=== PATIENT | male | born 1955 | race Caucasian/White ===

== ENCOUNTER 2018-11-01 15:54 | Emergency (ER) | payer OTHER, SELFPAY ==
[2018-11-01 15:56] VITALS: BP 140/73; PULSE 124; RESP 26; TEMP 36.8; O2SAT 89; BMI 34.9
--- NOTE | 2018-11-01 16:03 | ED.RN ---
PT STATES BASELINE HEART RATE FOR HIM IS 130'S, REFUSES O2 DESPITE SPO2 88-89% ON ROOM AIR.
--- NOTE | 2018-11-01 16:32 | ED.VISSUMM ---
- ER Visit Summary Date of Service: 11/01/18 Chief Complaint: Abdominal distention History of Present Illness: The patient is a 63 M who presents with ascites and abdominal distention that has been getting worse over the past 2-3 weeks. Patient normally gets a paracentesis weekly however it is been almost 3 weeks since his last paracentesis. Caregiver states that he normally gets 10 L drained from his abdomen when he gets his paracentesis. Patient denies any fevers or chills. Patient denies any nausea or vomiting. Patient denies any diarrhea, melena, or hematochezia. Patient denies any urinary complaints. Physical Examination: Vital signs show tachycardia of 124 and a mild tachypnea of 26. Pulse oximeter is 89% on room air. Oral mucosa is pink and moist. Neck is supple. Trachea is midline. There is no JVD noted. Heart was regular and tachycardic. Lungs are clear and equal bilateral. Abdomen is distended with a fluid wave noted. There is no erythema. Cranial nerves II through XII are intact. There are no focal motor or sensory deficits noted. Emergency Department Course and Treatment: The right lower abdomen was prepped and draped in a sterile manner. The area was anesthetized 1% plain lidocaine locally. The abdomen was drained with 9 L of cirrhotic fluid. Patient tolerated this procedure well. Patient felt better after the procedure. Dressing was applied to the puncture site. Patient was instructed to follow-up with his primary care physician and with the [place] [facility] for further treatment. Patient and caregiver understood and were agreeable with the plan. All questions were answered. Disposition: Discharge home Impression: 1. Cirrhosis with ascites This note was generated with [employer] dictation software. It may contain incorrect words, spelling, and punctuation that were not noted in review of the chart prior to signing ED Disposition - Plan for ED Patient: Disposition: Nursing Home Facility Diagnosis: Cirrhosis of liver with ascites Referrals: Dalton Mo MD [Primary Care Provider] -
--- NOTE | 2018-11-01 16:36 | ED.DCSUM_ITS ---
- ER Visit Summary Date of Service: 11/01/18 Chief Complaint: Abdominal distention History of Present Illness: The patient is a 63 M who presents with ascites and abdominal distention that has been getting worse over the past 2-3 weeks. Patient normally gets a paracentesis weekly however it is been almost 3 weeks since his last paracentesis. Caregiver states that he normally gets 10 L drained from his abdomen when he gets his paracentesis. Patient denies any fevers or chills. Patient denies any nausea or vomiting. Patient denies any diarrhea, melena, or hematochezia. Patient denies any urinary complaints. Physical Examination: Vital signs show tachycardia of 124 and a mild tachypnea of 26. Pulse oximeter is 89% on room air. Oral mucosa is pink and moist. Neck is supple. Trachea is midline. There is no JVD noted. Heart was regular and tachycardic. Lungs are clear and equal bilateral. Abdomen is distended with a fluid wave noted. There is no erythema. Cranial nerves II through XII are intact. There are no focal motor or sensory deficits noted. Emergency Department Course and Treatment: The right lower abdomen was prepped and draped in a sterile manner. The area was anesthetized 1% plain lidocaine locally. The abdomen was drained with 9 L of cirrhotic fluid. Patient tolerated this procedure well. Patient felt better after the procedure. Dressing was applied to the puncture site. Patient was instructed to follow-up with his primary care physician and with the [place] [facility] for further treatment. Patient and caregiver understood and were agreeable with the plan. All questions were answered. Disposition: Discharge home Impression: 1. Cirrhosis with ascites This note was generated with [employer] dictation software. It may contain incorrect words, spelling, and punctuation that were not noted in review of the chart prior to signing ED Disposition - Plan for ED Patient: Disposition: Nursing Home Facility Diagnosis: Cirrhosis of liver with ascites Referrals: Dalton Mo MD [Primary Care Provider] -
[2018-11-01 18:26] VITALS: BP 118/57; PULSE 115; RESP 20; O2SAT 94
--- NOTE | 2018-11-01 18:46 | ED.RN ---
THIS RN ASSISTED DR. OLMEDO WITH PT PARACENTESIS. PT TOLERATED WELL. 9L FLUID DRAINED. PRESSURE APPLIED TO SITE BY DR. OLMEDO, AND GAUZE DRESSING PLACED BY DR. OLMEDO. WILL CONTINUE TO MONITOR.
[2018-11-01 19:26] VITALS: BP 115/61; PULSE 109; RESP 19; O2SAT 92
== END 2018-11-01 19:44 | disposition skilled nursing facility (03) ==
PROVIDERS: Emergency Provider Emergency Medicine; Family Provider Internal Medicine Infectious Disease; PCP Internal Medicine Infectious Disease
DX: K74.60 Unspecified cirrhosis of liver (principal); R18.8 Other ascites
CPT/HCPCS: 49082; 99285; A4216

== ENCOUNTER 2018-11-06 11:50 | Day surgery (SDC) | payer SELFPAY ==
[2018-11-06 12:45] VITALS: BMI 34.7
[2018-11-06 13:18] VITALS: BP 141/80; PULSE 109; RESP 16; TEMP 36.9; O2SAT 96; BMI 34.7
[2018-11-06 13:41] LABS: Bedside Glucose 148 mg/dL (70-110)
--- NOTE | 2018-11-06 13:42 | PCM.HP.STD ---
Problem List (1) Cirrhosis Status: Acute Qualifiers: Hepatic cirrhosis type: unspecified hepatic cirrhosis Ascites presence: with ascites Qualified Code(s): K74.60 - Unspecified cirrhosis of liver; R18.8 - Other ascites (2) Schizophrenia Status: Acute Qualifiers: Schizophrenia type: schizophreniform disorder Qualified Code(s): F20.81 - Schizophreniform disorder History of Present Illness Date of Admission: 11/06/18 The patient is a 63 year old M intractable ascites secondary to assisted psychiatric medications. THe patient is a poor historian and confabulates, but his sister/ caregiver is providing history. He has been placed in hospice, but is requiring frequent paracentesis for ascites. His abdomen is grossly distended again Past Medical History Allergies chlorpromazine [From Thorazine] Allergy (Verified 11/06/18 12:42) Unknown thioridazine [From Mellaril] Allergy (Verified 11/06/18 12:42) Unknown Home Medications: Ambulatory Orders Medication Instructions Recorded Oxycodone HCl 5 mg PO Q4H PRN PRN 11/01/18 Surgical History: noncontributory Lives: [facility] Smoking Status: Light Smoker (<10/day) Alcohol: None Drugs: None Review of Systems Unable to obtain accurate/complete ROS d/t: psychiatric issues VTE Information - Inpt Only VTE Present on Admission: No VTE Mechan Device Prophylaxis: SCD's VTE Pharm Prophylaxis ordered?: No Patient Problems: Active and Suspected Problems Cirrhosis (Acute) Schizophrenia (Acute) - Physical Exam General: Alert, Cooperative, No apparent distress Lungs: Clear to auscultation, Normal air movement Cardiovascular: Regular rate, Regular Rhythm Abdomen: Bowel Sounds Present, Soft, - - grossly distended with tense ascites Vital Signs Temp Pulse Resp BP Pulse Ox 98.4 F 109 H 16 141/80 H 96 11/06/18 13:18 11/06/18 13:18 11/06/18 13:18 11/06/18 13:18 11/06/18 13:18 Oxygen Delivery Method Room Air Weight: 100.698 kg Body Mass Index (BMI) 34.7 POC Glucose 11/06/18 13:28 POC Glucose 148 H Assessment/Plan All Active Problems Cirrhosis (Acute) Schizophrenia (Acute) intractable ascites I plan to place an ultrasound guided tunneled paracentesis catheter. Consent is obtained from the patients sister, who is a nurse. She understands the risks, benefits, possible complications and consents to the planned procedure. 2 gm of Ancef will be given
[2018-11-06] MEDS: Cefazolin 2 GM in 0.9% Normal Saline 100 ML IV (14:44)
--- NOTE | 2018-11-06 15:42 | PCM.OPRPT ---
Problem List (1) Cirrhosis Status: Acute Qualifiers: Hepatic cirrhosis type: unspecified hepatic cirrhosis Ascites presence: with ascites Qualified Code(s): K74.60 - Unspecified cirrhosis of liver; R18.8 - Other ascites (2) Schizophrenia Status: Acute Qualifiers: Schizophrenia type: schizophreniform disorder Qualified Code(s): F20.81 - Schizophreniform disorder Report of Operation Date of Procedure: 11/06/18 Pre-Operative Diagnosis: intractable ascites, end stage hepatic failure Post-Operative Diagnosis: intractable ascites, end stage hepatic failure Surgery/Procedure Performed:: ultrasound guided tunneled peritoneal catheter placement Type of Anesthesia:: Local MAC Anesthesiologist: Sterling Link ASA4 Drains: peritoneal drain - 10,500cc Estimated Blood Loss (mL): 5 Fluids Replaced: 300 Description of Procedure: The patient was brought to the operating suite. Sign was performed verifying patient, site, position, skip antibiotic prophylaxis-2 g of Ancef and DVT prophylaxis with SCDs. Ultrasound was used to evaluate the lower abdomen and a window marked providing good entry into the peritoneal cavity along with marking the inferior epigastric to avoid the risks for bleeding was marked on the skin in the Following IV sedation, abdomen were prepped and draped in the usual fashion. Timeout was performed verifying patient, site, position. Local anesthetic was injected and a Seldinger needle was used to access the peritoneal cavity without difficulty. A guidewire was inserted and advanced into the peritoneal space. Local anesthetic was injected and incision made for the catheter exit site. Next the catheter was tunneled from the skin exit site to the wire. Dilators were placed over the wire until the largest dilator with introducer sheath were placed. The wire and dilator removed. The catheter was fed through the introducer suture sheath and adjusted to the edge of the abdominal cavity with the fenestrations . There was good return of ascites fluid. The Pleurx catheter was affixed to an adapter and ascetic fluid was drained. A total of approximately 10,500 cc of fluid was drained. The catheter was secured with a 3-0 silk suture at the skin exit site. The abdominal insertion site skin was closed with 4-0 Biosyn interrupted subcuticular sutures. Dermabond was applied to the abdominal insertion site. A dressing was applied. The catheter was then capped and dressed with the occlusive dressing The patient was brought to recovery room in stable condition. Grafts/Implants Used: Lot pleurex catheter [id number] exp - 09/11/2019
[2018-11-06 15:46] VITALS: BP 125/62; BP 141/80; PULSE 111; RESP 16; TEMP 36.8; O2SAT 92
--- NOTE | 2018-11-06 15:50 | DCINST_ITS ---
- Discharge Diagnoses Current Active Problems: Current Active and Chronic Problems Cirrhosis (Acute) Schizophrenia (Acute) You will use the following diet at home:: No restrictions Call your doctor if your incision/area has: Continuous Slow Oozing, Sudden Increased Bleeding, Increased Redness, Foul Smelling Discharge, Swelling at the incision site Call your doctor if you observe: Fever of 101 or Higher Additional Dressing/Incision Instructions:: drain pleurex catheter every other day - likely 2-3L to allow patient to be comfortable and tolerate a diet. redress per protocol Allergies/Adverse Reactions: Allergies chlorpromazine [From Thorazine] Allergy (Verified 11/06/18 12:42) Unknown thioridazine [From Mellaril] Allergy (Verified 11/06/18 12:42) Unknown Medications to take at Discharge Oxycodone HCl 5 mg PO Q4H PRN PRN 11/01/18 Primary Care Physician: Dalton Mo MD [Primary Care Provider] - Test Results: Test results from this visit will be discussed in further detail at your follow- up appointment, if applicable.
[2018-11-06 15:51] VITALS: BP 125/54; BP 141/80; PULSE 109; RESP 16; O2SAT 91
[2018-11-06 15:56] VITALS: BP 120/56; BP 141/80; PULSE 109; RESP 16; O2SAT 95
[2018-11-06 16:01] VITALS: BP 133/61; BP 141/80; PULSE 109; RESP 18; TEMP 37.1; O2SAT 93
[2018-11-06 16:53] VITALS: BP 141/80
== END 2018-11-06 16:57 | disposition skilled nursing facility (03) ==
LOC: SDC 11:55 → AC 11:55
PROVIDERS: Family Provider Internal Medicine Infectious Disease; PCP Internal Medicine Infectious Disease; Referring Provider Surgery; Visit Provider Surgery
PROC: 0WHG43Z Insertion of Infusion Device into Peritoneal Cavity, Percutaneous Endoscopic Approach (ICD-10-PCS; CPT 49324; principal; 2018-11-06 13:45)
DX: K74.60 Unspecified cirrhosis of liver (principal); R18.8 Other ascites; K72.90 Hepatic failure, unspecified without coma; B19.20 Unspecified viral hepatitis C without hepatic coma; F20.81 Schizophreniform disorder; I25.2 Old myocardial infarction; E11.9 Type 2 diabetes mellitus without complications; F17.210 Nicotine dependence, cigarettes, uncomplicated; Z86.73 Personal history of transient ischemic attack (TIA), and cerebral infarction without residual deficits; Z51.5 Encounter for palliative care
CPT/HCPCS: 00790; 49418; 82962; J7120; C1729; J2405